=== PATIENT | female | born 1995 | race Two or more races ===

== ENCOUNTER 2017-06-08 12:03 | Emergency (ER) | payer MEDICAID, OTHER ==
[~2017-06-08] VITALS: Ht 152.4 cm; Wt 54.4 kg
[2017-06-08 13:45] VITALS: BP 110/77
== END 2017-06-08 14:29 | disposition home or self-care (01) ==
LOC: ER 12:03
DX: L03.317 Cellulitis of buttock (principal); E11.9 Type 2 diabetes mellitus without complications

== ENCOUNTER 2017-06-13 08:25 | Emergency (ER) | payer MEDICAID, OTHER ==
[~2017-06-13] VITALS: Ht 152.4 cm; Wt 54.4 kg
[2017-06-13 08:47] VITALS: BP 134/87
[2017-06-13] MEDS ORDERED: LIDOCAINE 1% HCL (LOCAL ANESTH.) INJ 20ML MDV IN ONE (09:00)
== END 2017-06-13 09:17 | disposition home or self-care (01) ==
LOC: ER 08:25
DX: L02.31 Cutaneous abscess of buttock (principal); E11.9 Type 2 diabetes mellitus without complications
CPT/HCPCS: 10060; 99283; J2001

== ENCOUNTER 2017-06-14 09:11 | Emergency (ER) | payer MEDICAID ==
[~2017-06-14] VITALS: Ht 152.4 cm; Wt 54.4 kg
[2017-06-14 09:34] VITALS: BP 120/83
== END 2017-06-14 11:27 | disposition home or self-care (01) ==
LOC: ER 09:11
DX: L02.31 Cutaneous abscess of buttock (principal); E11.9 Type 2 diabetes mellitus without complications; Z48.01 Encounter for change or removal of surgical wound dressing

== ENCOUNTER 2018-11-19 18:34 | Emergency (ER) | payer MEDICAID ==
[~2018-11-19] VITALS: Ht 154.9 cm; Wt 60.3 kg
[2018-11-19 18:37] VITALS: BP 120/80
== END 2018-11-19 20:21 | disposition home or self-care (01) ==
LOC: ER 18:34
DX: J06.9 Acute upper respiratory infection, unspecified (principal); E11.9 Type 2 diabetes mellitus without complications; R42 Dizziness and giddiness

== ENCOUNTER 2019-03-06 01:17 | Emergency (ER) | payer MEDICAID ==
[~2019-03-06] VITALS: Ht 152.4 cm; Wt 63.5 kg
[2019-03-06 02:25] LABS: Basophils # (auto) 0 uL; Basophils % (auto) 0.2 % (0.0-2.0); Eosinophils # (auto) 0 uL; Eosinophils % (auto) 0.1 % (0.0-7.0); Hematocrit 34.9 % (36.0-46.0); Hemoglobin 11.9 g/dL (12.2-16.2); Lymphocytes # (auto) 0.3 uL; Lymphocytes % (auto) 2.9 % (10.0-50.0); Mean Corpuscular Hemoglobin 29.5 pg (28.0-32.0); Mean Corpuscular Hgb Conc. 34.1 g/dL (32.0-36.0); Mean Corpuscular Volume 86.5 fL (80.0-100.0); Monocytes # (auto) 0.3 uL; Monocytes % (auto) 2.8 % (0.0-12.0); Neutrophils # (auto) 10.6 uL; Platelet Count (auto) 289 10^3/uL (140-450); Red Blood Cells 4.03 10^6/uL (4.0-5.20); Red Cell Distribution Width 12.7 % (11.8-14.3); White Blood Cell 11.3 10^3/uL (4.4-10.8)
[2019-03-06 03:00] LABS: Albumin 2.3 g/dL (3.4-5.0); BUN/Creatinine Ratio 19.7; Potassium 4.3 mmol/L (3.5-5.1)
[2019-03-06 03:03] LABS: Bilirubin, Total 0.3 mg/dL (0.2-1.0); Total Protein 7.1 g/dL (6.4-8.2)
[2019-03-06] MEDS ORDERED: PYRIDOXINE HCL 50 MG TAB PO ONE (03:45)
[2019-03-06] MEDS ORDERED: MECLIZINE HCL 25 MG TAB PO ONE (03:45)
[2019-03-06] MEDS ORDERED: SODIUM CHLORIDE 0.9% 1,000 ML IV ONE (03:45)
[2019-03-06 04:21] LABS: Urine Amorphous Crystal FEW /hpf (None Seen); Urine Bacteria FEW /hpf (None Seen); Urine Blood Negative /uL (Negative); Urine WBC 5 /hpf (0 - 5)
[2019-03-06 05:27] VITALS: BP 119/77
[2019-03-06] MEDS ORDERED: PROMETHAZINE HCL 25 MG/ML 1ML IV PRN (05:30)
[2019-03-06] MEDS ORDERED: DEXTROSE (50%) 50ML SYRG IV PRN (05:30)
[2019-03-06] MEDS ORDERED: SODIUM CHLORIDE 0.9% 1,000 ML IV SCH (05:30)
[2019-03-06] MEDS ORDERED: ACCU-CHEK COMFORT CURVE STRIP VI SCH (08:00)
[2019-03-06] MEDS ORDERED: InsuLIN REG 1unit/0.01ml Soln (100units/ml) SC SCH (08:00)
== END 2019-03-06 06:15 | disposition left against medical advice (07) ==
LOC: ER 01:23
DX: O21.0 Mild hyperemesis gravidarum (principal); E11.10 Type 2 diabetes mellitus with ketoacidosis without coma; Z3A.22 22 weeks gestation of pregnancy
CPT/HCPCS: 36415; 80053; 81001; 82010; 82962; 83036; 83690; 85025; 96360; 99283; J8597